=== PATIENT | female | born 1950 | race Asian ===

== ENCOUNTER 2022-01-07 21:19 | Inpatient (IN) | payer OTHER ==
[~2022-01-07] VITALS: Ht 147.3 cm; Wt 54.4 kg
[2022-01-07 20:00] VITALS: BP 148/82
--- NOTE | 2022-01-08 00:10 | NUR ---
GPS -SOFTWARE SALES NOTES ADMITTED A 71-Y/O, FEMALE, PT CAME FROM [facility]. ADMITTED ON A 5150 HOLD FOR DTS. PER HOLD, PATIENT MADE AN STATEMENTS TO SON ABOUT PLANNING TO KILL SELF BY STABBING SELF WITH KNIFE AND WERE FOUND IN ROOM WITH POLICE HOLDING KNIFE BY SELF NEEDING TO BE DISARMED. UPON FACE TO FACE EVALUATION, PT IS ALERT AND ORIENTED X3-4, APPEARS DEPRESSED, BLUNTED AFFECT, WITHDRAWN, COOPERATIVE TO CARE. DENIED SI/HI/AVH AT THIS TIME. SKIN ASSESSMENT DONE. BELONGINGS WERE INVENTORIED AND CHECKED FOR CONTRABAND. OFFERED PNEUMONIA VACCINE BUT PATIENT REFUSED. PATIENT IS UNDER THE PSYCHIATRIC CARE OF DR. DR. HELTON AND MEDICAL CARE OF DEV TECHNICAL MGR NANCY ELLIS. BED IN LOW LOCKED POSITION. SAFETY PRECAUTIONS MAINTAINED. WILL CONTINUE TO MONITOR Q15 MINS FOR MOOD, SAFETY AND BEHAVIOR.
[2022-01-08] MEDS ORDERED: MAG HYDROX/AL HYDROX/SIMETH 30 ML UDC PO PRN (00:30)
[2022-01-08] MEDS ORDERED: LORAZEPAM 0.5 MG TABLET PO PRN (00:30)
[2022-01-08] MEDS ORDERED: BLOOD SUGAR DIAGNOSTIC 1 EACH STRIP IN ONE (00:30)
[2022-01-08] MEDS ORDERED: MAGNESIUM HYDROXIDE 30 ML UDC PO PRN (00:30)
[2022-01-08] MEDS ORDERED: ACETAMINOPHEN 325 MG TABLET PO PRN (00:30)
[2022-01-08] MEDS ORDERED: ATOR40TA PO (01:06)
[2022-01-08] MEDS ORDERED: ALBUTEROL HFA 90MCG (01:06)
[2022-01-08] MEDS ORDERED: APIX5TAB PO (01:06)
[2022-01-08] MEDS ORDERED: MONT10TA22 PO (01:06)
[2022-01-08] MEDS ORDERED: FLAX100038 PO (01:06)
[2022-01-08] MEDS ORDERED: TRIA15CR3 TP (01:06)
[2022-01-08] MEDS ORDERED: PANT40TA2 PO (01:06)
[2022-01-08] MEDS ORDERED: LATA2.5D15 EACHEYE (01:06)
[2022-01-08] MEDS ORDERED: DOCU100C36 PO (01:06)
[2022-01-08] MEDS ORDERED: NITR0.4T48 PO (01:06)
[2022-01-08] MEDS ORDERED: GABA-532 PO (01:06)
[2022-01-08] MEDS ORDERED: SUMA50TA PO (01:06)
[2022-01-08] MEDS ORDERED: MECL-182 PO (01:06)
[2022-01-08] MEDS ORDERED: ESCI20TA PO (01:06)
[2022-01-08] MEDS ORDERED: OXYB10TA4 PO (01:06)
[2022-01-08] MEDS ORDERED: NORT10CA PO (01:06)
[2022-01-08 01:13] VITALS: BP 148/82
--- NOTE | 2022-01-08 06:33 | NUR ---
GPS RN NOTES CALLED PATIENTS' SON JUANITA EL ([phone]) LEFT A VOICEMAIL MESSAGE. WILL ENDORSE TO DAY SHIFT NURSE FOR CONTINUITY OF CARE.
[2022-01-08 08:00] VITALS: BP 125/58
[2022-01-08] MEDS ORDERED: ALBU18HF2 IH (08:29)
[2022-01-08] MEDS ORDERED: METO25TA20 PO (08:29)
[2022-01-08] MEDS ORDERED: DOCUSATE SODIUM 100 MG CAPSULE PO PRN (12:00)
[2022-01-08] MEDS ORDERED: NITROGLYCERIN 0.4 MG/TAB BOTTLE SL PRN (12:00)
[2022-01-08] MEDS ORDERED: SUMATRIPTAN SUCCINATE 25 MG TABLET PO PRN (12:30)
[2022-01-08] MEDS ORDERED: ALBUTEROL FS 2.5 MG/0.5 ML VIAL.NEB IH PRN (13:00)
[2022-01-08 13:04] LABS: BASOPHILS # (AUTO) 0.1 K/uL (0.0-0.2); BASOPHILS % (AUTO) 0.6 % (0.0-2.0); EOSINOPHILS % (AUTO) 1.7 % (0.0-6.0); HEMATOCRIT 45 % (33-45); HEMOGLOBIN 15.1 g/dL (11.5-14.8); LYMPHOCYTES # (AUTO) 1.8 K/uL (0.8-4.8); MEAN CORPUSCULAR HGB CONC 33 g/dl (31.0-36.0); MEAN CORPUSCULAR VOLUME 90 fL (82-100); MONOCYTES # (AUTO) 0.7 K/uL (0.1-1.30); MONOCYTES % (AUTO) 6.9 % (2.0-12.0); NEUTROPHILS # (AUTO) 7.2 K/uL (1.8-8.9); NEUTROPHILS % (AUTO) 72.8 % (43.0-81.0); PLATELET COUNT (AUTO) 225 K/uL (150-450); RED BLOOD CELL COUNT(AUTO) 5.04 MIL/uL (4.0-5.2); WHITE BLOOD COUNT (AUTO) 9.9 K/uL (4.3-11.0)
[2022-01-08 13:34] LABS: CALCIUM, SERUM 8.9 mg/dL (8.5-10.1); CREATININE 0.9 mg/dL (0.6-1.3); POTASSIUM 3.9 mmol/L (3.5-5.1)
--- NOTE | 2022-01-08 15:25 | NUR ---
Initital Discharge Plan: The pt. currently resides at home [[address] [facility] [address]; [phone]] with her and son/[facility] caregiver, Chad [phone]. Per pt. she would like to be discharge back home when ready. JOSE spoke with Chad and he stated that he would like the pt. to return home.
--- NOTE | 2022-01-08 15:39 | NUR ---
Family Contact: Pt. gave SW verbal consent to speak to her son/[facility] caregiver, Chad [phone]. Per pt. her son lives in the same home with her. SW called Chad to gather collateral information. Chad stated that pt. is high functioning and she has always managed her own medications but is now concerned that she has been abusing her depression medication. Per pt. when pt. was in ED this admission he witnessed pt. grab 3 of her depression pills and he corrected her that she is supposed to only take 1 pill. Per Chad, pt. stated it helps her sleep.
--- NOTE | 2022-01-08 16:16 | NUR ---
UR Note: AUTH #[id number] Assigned CM Hilda Samano @[phone] F @[phone] Review is due 01/09/2022
[2022-01-08] MEDS ORDERED: FLAXSEED OIL 1000 MG PO SCH (17:00)
[2022-01-08 17:02] VITALS: BP 112/66
[2022-01-08] MEDS: GABAPENTIN 100 MG CAPSULE PO SCH (17:30)
[2022-01-08] MEDS: ATORVASTATIN 40 MG TABLET PO SCH (17:30)
[2022-01-08] MEDS: MONTELUKAST SODIUM (10MG) 10 MG TABLET PO SCH (17:30)
[2022-01-08] MEDS: APIXABAN 5 MG TABLET PO SCH (17:31)
[2022-01-08] MEDS: LATANOPROST EYE DROP 0.005% 2.5 ML BOTTLE EACHEYE SCH (17:32)
[2022-01-08] MEDS: METOPROLOL TARTRATE 25 MG TABLET PO SCH (17:32)
[2022-01-08 20:36] VITALS: BP 114/63
[2022-01-09] MEDS: PANTOPRAZOLE 40 MG TABLET.DR PO SCH (07:30)
[2022-01-09 08:00] VITALS: BP 117/66
[2022-01-09 08:10] LABS: CREATININE 0.8 mg/dL (0.6-1.3)
[2022-01-09 08:17] LABS: ALBUMIN 3.2 g/dL (3.4-5.0); BILIRUBIN,TOTAL 0.6 mg/dL (0.2-1.0); CALCIUM, SERUM 8.9 mg/dL (8.5-10.1); CREATININE 0.8 mg/dL (0.6-1.3); POTASSIUM 4.1 mmol/L (3.5-5.1); TOTAL PROTEIN, SERUM 6.9 g/dL (6.4-8.2)
[2022-01-09 08:25] LABS: THYROID STIMULATING HORMONE 1.15 uIU/mL (0.358-3.74)
--- NOTE | 2022-01-09 08:51 | NUR ---
UR Note: AUTH #[id number]. Assigned CM Hilda Samano @[phone], F @[phone]. SW sent clinicals for review.
[2022-01-09] MEDS ORDERED: MECLIZINE HCL 12.5 MG TABLET PO SCH (09:00)
[2022-01-09] MEDS: DULOXETINE HCL 30 MG CAPSULE.DR PO SCH (09:44)
[2022-01-09] MEDS: MECLIZINE HCL 25 MG TABLET PO SCH (09:44)
[2022-01-09] MEDS: OXYBUTYNIN CHLORIDE ER 5 MG TAB PO SCH (09:44)
[2022-01-09] MEDS: GABAPENTIN 100 MG CAPSULE PO SCH ×2 (09:44→17:05)
[2022-01-09] MEDS: APIXABAN 5 MG TABLET PO SCH ×2 (09:46→17:04)
[2022-01-09] MEDS: METOPROLOL TARTRATE 25 MG TABLET PO SCH ×2 (09:58→17:04)
--- NOTE | 2022-01-09 13:56 | NUR ---
APS: Patient's son Chad ([phone]) stated pt is hoarding at home. SW filed report through [facility] # [id number] and placed in pt's chart.
--- NOTE | 2022-01-09 15:22 | NUR ---
JOSE Coordination of Care: Rupa ([phone]) contacted this junior technical writer and stated pt will be living at her house located at [address] [place] [address], [place] [id number].
[2022-01-09 16:00] VITALS: BP 113/66
[2022-01-09] MEDS: MONTELUKAST SODIUM (10MG) 10 MG TABLET PO SCH (17:09)
[2022-01-09] MEDS: ATORVASTATIN 40 MG TABLET PO SCH (17:09)
[2022-01-09] MEDS: LATANOPROST EYE DROP 0.005% 2.5 ML BOTTLE EACHEYE SCH (17:10)
[2022-01-09 19:52] VITALS: BP 103/66
--- NOTE | 2022-01-09 19:57 | NUR ---
GPS RN OPENING NOTES: RECEIVED PATIENT IN BED, AWAKE. A/O X3. BLUNTED AFFECT, PASSIVE, GUARDED, ISOLATIVE. PATIENT ENCOURAGED TO VERBALIZE FEELINGS. DENIES SI, HI AND PAIN AT THIS TIME. NO S/S OF DISTRESS. RESPIRATION EVEN AND UNLABORED WITH EQUAL RISE AND FALL OF THE CHEST, ON ROOM AIR. OFFERED FLUID AND SNACKS TOLERATED. BED IN LOWEST POSITION AND LOCKED, SIDE RAILS UP X2 FOR SAFETY. WILL CONTINUE TO MONITOR Q15 FOR MOOD, SAFETY AND BEHAVIOR.
--- NOTE | 2022-01-10 07:00 | NUR ---
GPS RN CLOSING NOTES: PATIENT IS IN BED, AWAKE A/O X3. PATIENT SLEPT 8HRS THIS SHIFT. NO S/S OF DISTRESS. RESPIRATION EVEN AND UNLABORED WITH EQUAL RISE AND FALL OF THE CHEST, ON ROOM AIR. ALL PATIENT CARE NEEDS HAVE BEEN MET ANTICIPATED. WILL CONTINUE TO MONITOR Q15 FOR SAFETY, MOOD AND BEHAVIOR AND ENDORSE TO AM SHIFT.
[2022-01-10 08:00] VITALS: BP 120/69
[2022-01-10] MEDS: PANTOPRAZOLE 40 MG TABLET.DR PO SCH (08:28)
[2022-01-10] MEDS: DULOXETINE HCL 30 MG CAPSULE.DR PO SCH (08:29)
[2022-01-10] MEDS: OXYBUTYNIN CHLORIDE ER 5 MG TAB PO SCH (08:29)
[2022-01-10] MEDS: MECLIZINE HCL 25 MG TABLET PO SCH (08:30)
[2022-01-10] MEDS: APIXABAN 5 MG TABLET PO SCH ×2 (08:31→17:44)
[2022-01-10] MEDS: METOPROLOL TARTRATE 25 MG TABLET PO SCH ×2 (08:32→17:42)
[2022-01-10] MEDS: GABAPENTIN 100 MG CAPSULE PO SCH ×2 (08:32→17:42)
--- NOTE | 2022-01-10 09:45 | NUR ---
JOSE Family Contact: JOSE spoke with Rupa ([phone]) who stated that pt will be living with him in the meantime. Address: located at [address] [place] [address].
--- NOTE | 2022-01-10 09:57 | NUR ---
UR Note: AUTH #[id number]. Assigned CM Hilda Samano @[phone], F @[phone]. SW sent clinicals for review.
[2022-01-10 16:00] VITALS: BP 111/60
[2022-01-10] MEDS: MONTELUKAST SODIUM (10MG) 10 MG TABLET PO SCH (18:31)
[2022-01-10] MEDS: ATORVASTATIN 40 MG TABLET PO SCH (18:31)
[2022-01-10] MEDS: LATANOPROST EYE DROP 0.005% 2.5 ML BOTTLE EACHEYE SCH (18:47)
--- NOTE | 2022-01-10 19:13 | NUR ---
PT COMPLIANT WITH CARE, ABLE TO MAKE ALL NEEDS KNOWN, NO C/O PAIN, NO DISTRESS, NO SOB NOTED, AMBULATED THROUGH [address] WAY TO TV ROOM AND WAS WELL BEHAVED DURING AM SHIFT.
[2022-01-10 20:00] VITALS: BP 109/63
[2022-01-10 20:24] VITALS: BP 109/65
[2022-01-10] MEDS: TEMAZEPAM 7.5 MG CAPSULE PO PRN (21:22)
--- NOTE | 2022-01-11 05:28 | NUR ---
closing notes: alert and orientated X3 friendly and cooperative sat in the TV room before retiring to be cooperative and compliant
[2022-01-11] MEDS: PANTOPRAZOLE 40 MG TABLET.DR PO SCH (07:30)
--- NOTE | 2022-01-11 08:09 | NUR ---
UR Note: AUTH #[id number]. Assigned CM Hilda P @[phone], F @[phone]. Patient has been authorized for her stay at the hospital and requires clinicals daily.
--- NOTE | 2022-01-11 08:09 | NUR ---
UR Note: AUTH #[id number]. Assigned CM Hilda Samano @[phone], F @[phone]. SW sent clinicals for review.
--- NOTE | 2022-01-11 08:12 | NUR ---
Court Notification: JOSE contacted pt's son Chad ([phone]) and left a detailed voicemail that pt's 0204 hearing is today.
[2022-01-11] MEDS: DULOXETINE HCL 30 MG CAPSULE.DR PO SCH (09:36)
[2022-01-11] MEDS: MECLIZINE HCL 25 MG TABLET PO SCH (09:36)
[2022-01-11] MEDS: OXYBUTYNIN CHLORIDE ER 5 MG TAB PO SCH (09:37)
[2022-01-11] MEDS: APIXABAN 5 MG TABLET PO SCH ×2 (09:40→16:29)
[2022-01-11] MEDS: GABAPENTIN 100 MG CAPSULE PO SCH ×2 (09:40→16:26)
[2022-01-11] MEDS: METOPROLOL TARTRATE 25 MG TABLET PO SCH ×2 (09:41→16:27)
--- NOTE | 2022-01-11 09:45 | NUR ---
APS Contact: SW received a call from APS Hotline ([phone]) and spoke with Elma davis who stated that a nursing home social worker will be assigned and will be visiting pt.
--- NOTE | 2022-01-11 10:44 | NUR ---
Coordination of Care: Patient will follow up with (Construction Plant Operator) Dr. Yusuf Carrasco located at [address] [place] [address]; ([phone]) on January 16 at 1:45PM, scheduled by senior cyber security analyst who will monitor and provide patient's psychotropic medications.
--- NOTE | 2022-01-11 12:02 | NUR ---
Court Hearing: Patient's court hearing for 1550 was today and it was upheld for GD.
--- NOTE | 2022-01-11 18:05 | NUR ---
PT WAS COOPERATIVE, HAPPY , SINGING AND AMBULATING IN THE HALLWAY WITH WALKER STATING SHE IS GOING HOME TOMORROW. ENCOURAGED TO BE HAPPY, MEDITATE, AND TO THINK ON THE POSITIVE THOUGHTS OF LIFE AND ALL THE CARLOS THAT COMES HER WAY EACH DAY, SHE AGREED AND HAD A VERY NICE POSITIVE DAY. SHE PLAYED CARDS IN HER ROOM AND KEPT HERSELF OCCUPIED, HAD NO SOB, NO DISTRESS, STATED NO PAIN, SHE WAS COMPLIANT AND COOPERATIVE.
[2022-01-11] MEDS: ATORVASTATIN 40 MG TABLET PO SCH (18:12)
[2022-01-11] MEDS: LATANOPROST EYE DROP 0.005% 2.5 ML BOTTLE EACHEYE SCH (18:12)
[2022-01-11] MEDS: MONTELUKAST SODIUM (10MG) 10 MG TABLET PO SCH (18:13)
[2022-01-11 20:00] VITALS: BP 119/68
--- NOTE | 2022-01-11 20:22 | NUR ---
RN NOTES: PATIENT RESTING IN ROOM,DEPRESSD, GUARDED WITH FLAT AFFECT,ISOLATIVE ENCOURAGED PT. TO VERBALIZED ANY FEELING OR CONCERN AND JOIN GROUP ACTIVITY, MED COMPLIANT, WILL CONTINUE. MONITORING FOR SAFETY AND BEHAVIOR.
[2022-01-11] MEDS: TEMAZEPAM 7.5 MG CAPSULE PO PRN (22:09)
--- NOTE | 2022-01-11 22:09 | NUR ---
RN NOTES: INSOMNIA PT. C/O UNABLE TO SLEEP ,PRN RESTORIL 7.5MG GIVEN PO FOR SLEEP WILL CONTINUE TO MONITOR.
--- NOTE | 2022-01-12 07:49 | NUR ---
SW Discharge Note: Patient will be discharged back to son Rupa ([phone]) house [address] at [address] [address] Patients yanelis Bonilla ([phone]) will orange picker machine operator pt at 11AM. Patients yanelis Bonilla ([phone]) is aware of discharge and he is the [facility] caregiver. Patient is alert and oriented x4. Patient denies suicidal or homicidal ideation. Patient denies visual/auditory hallucinations. Patient will follow up with (Senior Revenue Accountant) Dr. Yusuf Carrasco located at [id number] [place] [address]; ([phone]) on January 16 at 1:45PM who will monitor and provide psychotropic medications. Patient presents with euthymic mood and congruent affect.
[2022-01-12 08:00] VITALS: BP 130/81
[2022-01-12] MEDS: PANTOPRAZOLE 40 MG TABLET.DR PO SCH (08:02)
[2022-01-12] MEDS: OXYBUTYNIN CHLORIDE ER 5 MG TAB PO SCH (08:03)
[2022-01-12] MEDS: GABAPENTIN 100 MG CAPSULE PO SCH (08:03)
[2022-01-12] MEDS: DULOXETINE HCL 30 MG CAPSULE.DR PO SCH (08:03)
[2022-01-12] MEDS: MECLIZINE HCL 25 MG TABLET PO SCH (08:03)
[2022-01-12 08:05] VITALS: BP 130/81
[2022-01-12] MEDS: METOPROLOL TARTRATE 25 MG TABLET PO SCH (08:05)
[2022-01-12] MEDS: APIXABAN 5 MG TABLET PO SCH (08:05)
--- NOTE | 2022-01-12 08:05 | NUR ---
UR Note: AUTH #[id number]. Assigned CM Hilda P @[phone], F @[phone]. Patient has been authorized for her stay at the hospital and requires clinicals daily. SW sent clinicals and discharge note.
--- NOTE | 2022-01-12 08:45 | NUR ---
Dr. Chandra gave an order to D/C hold and D/C to yanelis hernandez and to follow with the the video editing intern Dr. Yusuf Carrasco and who will monitor and provide psychotropic medications. Dr. Chandra provided a prescription upon discharge.
--- NOTE | 2022-01-12 09:38 | NUR ---
Dr. Dean in the unit and made aware of the discharge and reconciled meds to continue at home. Per pt. she still have the medical meds at home.
--- NOTE | 2022-01-12 10:08 | NUR ---
Insurance: AMBROSE Samano @[phone] contacted this designer writer stated that AMBROSE Moody ([phone]) will contact pt to give appointment dates for doctors.
--- NOTE | 2022-01-12 14:50 | NUR ---
RN NOTES DISCHARGE PATIENT IN STABLE CONDITION WITH STABLE VITAL SIGNS. NO PAIN NOTED. NO SOB NOTED. NO ANXIETY NOTED. NO DISTRESS NOTED. PATIENT DENIES ANY SI/HI IDEATIONS. PATIENT DENIES ANY HARM TO SELF OR OTHERS. PATIENT DENIES HEARING ANY VOICES. PATIENT DENIES SEEING THINGS. ALL NEEDS ATTENDED. PATIENT VERY HAPPY TO GO HOME. THE SON JUANITA CAME TO PICK HER MOM UP. THE SON JUANITA SIGNED THE PAPER FOR CONTINUATION OF THE CARE AND ACKNOWLEDGEMENT. DR PHAM FINALIZED THE HOME MED RECONCILIATION. EDUCATE THE SON ABOUT THE LIST OF HOME MEDICATIONS.ALL THE DISCHARGE INSTRUCTIONS GIVEN TO THE SON AND PATIENT. BOTH VERBALIZED UNDERSTANDING. REMIND THE PATIENT AND SON THAT THE PATIENT HAS APPOINTMENT AT January. AND ALSO EDUCATE THE NEW PRESCRIPTION OF CYMBALTA 30 MG PO DAILY CONSUMPTION. ALL THE BELONGINGS ACCOUNTED AND SIGNED FOR. CONCHITA WHEELED THE PATIENT TO THE LOBBY. PATIENT LEFT HOSPITAL AT 1450 IN STABLE CONDITION WITH HER SON JUANITA. MD AND CHARGE NURSE AWARE OF THE DISCHARGE.
== END 2022-01-12 14:30 | disposition home or self-care (01) | DRG 885 ==
LOC: GPS 01-08 00:03
PROVIDERS: ADMIT Psychiatry & Neurology Psychosomatic Medicine; ATTEND Student in an Organized Health Care Education/Training Program
DX: F33.0 Major depressive disorder, recurrent, mild (principal); F01.50 Vascular dementia, unspecified severity, without behavioral disturbance, psychotic disturbance, mood disturbance, and anxiety; I48.20 Chronic atrial fibrillation, unspecified; E78.5 Hyperlipidemia, unspecified; I10 Essential (primary) hypertension; G47.30 Sleep apnea, unspecified; J44.9 Chronic obstructive pulmonary disease, unspecified; Z79.01 Long term (current) use of anticoagulants; G43.909 Migraine, unspecified, not intractable, without status migrainosus; R42 Dizziness and giddiness
CPT/HCPCS: 36415; 80048-TC; 80053-TC; 80061-TC; 82565-TC; 82962-TC; 84443-TC; 85025-TC; 87081-TC; 97116-TC; 97530-TC; J8597